=== PATIENT | female | born 1955 | race Caucasian/White ===

== ENCOUNTER 2019-12-08 14:30 | Inpatient (IN) | payer OTHER, MEDICAID ==
[~2019-12-08] VITALS: Ht 152.4 cm; Wt 74.4 kg
[2019-12-08 14:35] VITALS: BP_SYST 128
[2019-12-08] MEDS ORDERED: NACL 0.9% 1,000 ML IV ONE (14:35)
--- NOTE | 2019-12-08 14:35 | NUR ---
Placed in room by EMT.
[2019-12-08] MEDS ORDERED: MORPHINE 2 MG/ML INJ. SYRINGE IVP ONE (14:45)
[2019-12-08] MEDS ORDERED: ONDANSETRON HCL 4 MG/2 ML VIAL IVP ONE (14:45)
--- NOTE | 2019-12-08 15:05 | NUR ---
TO X-RAY. LABS SENT, IV HL 20 GUAGE RT LOWER ARM
[2019-12-08 15:21] LABS: BASOPHILS % (AUTO) 0.4 % (0.0-2.0); EOSINOPHILS # (AUTO) 0.2 K/uL (0.0-0.4); HEMATOCRIT 30.1 % (36-48); HEMOGLOBIN 9.9 g/dL (12.0-16.0); LYMPHOCYTES # (AUTO) 0.8 K/uL (1.0-5.5); LYMPHOCYTES % (AUTO) 6.7 % (20.5-51.5); MEAN CORPUSCULAR HEMOGLOBIN 31 pg (27-31); MEAN CORPUSCULAR HGB CONC 33 % (32-36); MONOCYTES # (AUTO) 1.2 K/uL (0.0-1.0); NEUTROPHILS # (AUTO) 9.9 K/uL (1.8-7.7); NEUTROPHILS % (AUTO) 80.9 % (40.0-70.0); PLATELET COUNT (AUTO) 271 K/uL (130-430); RED BLOOD CELL COUNT(AUTO) 3.16 MIL/uL (4.2-6.2); RED CELL DISTRIBUTION WIDTH 14.8 % (9.0-15.0); WHITE BLOOD COUNT (AUTO) 12.3 K/uL (4.8-10.8)
--- NOTE | 2019-12-08 15:27 | NUR ---
1450 DR. WINKLER IN TO ASSESS. PT CALM, ALERT, BLIND
[2019-12-08 15:32] LABS: MEAN CORPUSCULAR VOLUME 95 fL (79.0-98.0)
[2019-12-08 15:34] LABS: ANION GAP 8 (5-15); CALCIUM 7.7 mg/dL (8.4-11.0); CHLORIDE 105 mmol/L (98-107); CREATININE 1.38 mg/dL (0.55-1.30); GLUCOSE 110 mg/dL (70-99); POTASSIUM 3.3 mmol/L (3.5-5.1); SODIUM SERUM 139 mmol/L (136-145); UREA NITROGEN, BLOOD 15 mg/dL (8-21)
--- NOTE | 2019-12-08 15:34 | NUR ---
BIB AMBULANCE FROM [facility] FOR ABD PAIN UPON ARRIVAL , C/O EPIGATRIC PAIN WITH VOMITING AND DIARRHEA. NO DISTRESS, RESP UNLABORED, SKIN WARM AND DRY. COMMUNICATES CLEARLY IN FULL COMPLETE SENTENCES.
[2019-12-08 15:35] LABS: PROTHROMBIN TIME 10.4 SECS (9.5-12.5)
[2019-12-08 15:36] LABS: GFR AFRICAN AMERICAN 49 mL/min (>90)
[2019-12-08 15:40] LABS: ALANINE AMINOTRANSFERASE 25 U/L (12-78); ALBUMIN 2.3 g/dL (3.4-4.8); AMYLASE 25 U/L (0-100); ASPARTATE AMINOTRANSFERASE 18 U/L (10-37); LIPASE 48 U/L (73-393); TOTAL BILIRUBIN 0.4 mg/dL (0.0-1.0)
[2019-12-08 15:43] LABS: ACETAMINOPHEN < 1 ug/mL (1-30); ALCOHOL, BLOOD < 3 mg/dL (<10)
[2019-12-08 15:46] LABS: CHOLESTEROL 173 mg/dL (<200); HDL CHOLESTEROL 34 mg/dL (>55); TRIGLYCERIDES 153 mg/dL (30-150)
[2019-12-08 15:48] LABS: LDL CHOLESTEROL 99 mg/dL (<100)
--- NOTE | 2019-12-08 15:56 | NUR ---
PT'S SISTER CALLED TO CHECK ON THE STATUS OF HER SISTER. ASKED HER FOR HER NAME AND CALL BACK INFORMATION. HER NAME IS ARIAS PERALTA, AND PHONE NUMBER IS [phone]. WAS TOLD THAT THE NURSE WILL CALL ONCE WE HAVE ANY UPDATES.
[2019-12-08] MEDS ORDERED: cefTRIAXone 1 GM IVPB PREMIX 50 ML IV ONE (16:00)
--- NOTE | 2019-12-08 17:16 | NUR ---
CONSULTATION PAGED/CALLED Reason for Consultation: [] DIVERTICULITIS Person Who was Notified: [] MEGGAN Consulting Physician: [] DR INMAN ANALYSIS EVALUATOR FOR DR FLORES Assistant District Attorney Specialty: [] GI Ordering Physician: [] DR ANDERSON
--- NOTE | 2019-12-08 17:23 | NUR ---
respunlabored, skin warm and dry. ambulates steady with assistance. medicated for pain 02/12
[2019-12-08] MEDS ORDERED: MORPHINE 2 MG/ML INJ. SYRINGE ONE (17:27)
[2019-12-08] MEDS ORDERED: ONDANSETRON HCL 4 MG/2 ML VIAL ONE (17:28)
--- NOTE | 2019-12-08 17:43 | NUR ---
Rhonda POWERS started by RN @ 7407, completed @ 9598
--- NOTE | 2019-12-08 17:43 | NUR ---
Patient will be admitted to care of Dr. Hough. Admitted to MedSurg unit. Will go to room 104A. Belongings list completed. Complete and up to date summary report printed. SBAR report to be given at bedside with opportunity for questions.
[2019-12-08] MEDS ORDERED: DEXTROSE 50% JECT 50 ML DISP.SYRIN IVP PRN (17:45)
[2019-12-08] MEDS ORDERED: METOCLOPRAMIDE HCL 10 MG/2 ML VIAL IVP PRN (17:45)
[2019-12-08] MEDS ORDERED: ONDANSETRON HCL 4 MG/2 ML VIAL IVP PRN (17:45)
--- NOTE | 2019-12-08 17:59 | NUR ---
Admission: Received from ER on a gurney with the diagnosis of Diverticulitis and Pneumonia. Total assist with transfer from gurney to bed. Patient is oriented x4. Oriented to room, call light within reach.
[2019-12-08 18:18] VITALS: BP_SYST 123
[2019-12-08 18:33] LABS: BILIRUBIN,URINE NEGATIVE (NEGATIVE); BLOOD, URINE NEGATIVE (NEGATIVE); CLARITY/URINE CLEAR (CLEAR); COLOR,URINE YELLOW (YELLOW); GLUCOSE,URINE NEGATIVE (NEGATIVE); KETONES,URINE NEGATIVE (NEGATIVE); LEUKOCYTE ESTERASE ,URINE NEGATIVE (NEGATIVE); NITRITE, URINE NEGATIVE (NEGATIVE); PROTEIN URINE NEGATIVE (NEGATIVE); UROBILINOGEN,URINE 0.2 (0.2-1.0)
[2019-12-08 18:46] LABS: BARBITURATE, URINE NEGATIVE (NEG <=200); BENZODIAZEPINE, URINE NEGATIVE (NEG <=150); CANNABINOID, URINE POSITIVE (NEG <=50); COCAINE, URINE NEGATIVE (NEG <=150); METHAMPHETAMINES SCREEN,URINE NEGATIVE (NEG <=500); URINE AMPHETAMINE NEGATIVE (NEG <=500); URINE METHADONE NEGATIVE (NEG <=200)
[2019-12-08 18:47] LABS: OPIATE, URINE NEGATIVE (NEG <=100); PHENCYCLIDINE SCREEN,URINE NEGATIVE (NEG <=25); UR TRICYCLIC ANTIDEPRESSANTS NEGATIVE (NEG <=300); URINE OXYCODONE SCREEN NEGATIVE (NEG <=100); URINE PROPOXYPHENE SCREEN NEGATIVE (NEG <=300)
[2019-12-08 19:00] VITALS: BP_SYST 130
[2019-12-08] MEDS: D5NS 1,000 ML IV SCH (19:24)
--- NOTE | 2019-12-08 19:45 | NUR ---
RESTING COMFORTABLY IN NO ACUTE DISTRESS.SITTER @ THE BS.
[2019-12-08 20:00] VITALS: BP_SYST 130
--- NOTE | 2019-12-08 20:00 | NUR ---
AFEBRILE.V/S STABLE.KEPT NPO.
[2019-12-08] MEDS ORDERED: metroNIDAZOLE 500 mg/NS 200 ML IV ONE (22:00)
--- NOTE | 2019-12-08 22:00 | NUR ---
IVF D5NS @ 75 ML/HR INFUSING WELL.PT KEPT SAYING "I DON'T WANT TO BE BOTHERED.STOP IT".
[2019-12-08] MEDS: metroNIDAZOLE 500 mg/NS 100 ML IV SCH (22:03)
--- NOTE | 2019-12-09 | NUR ---
FINGER STICK BLD SUGAR 90. REFUSED BP @ THIS TIME.
--- NOTE | 2019-12-09 02:00 | NUR ---
RESTING COMFORTABLY IN NO ACUTE DISTRESS.SITTER @ THE BS.
--- NOTE | 2019-12-09 04:00 | NUR ---
ASSISTED OOB TO BS COMMODE & ASSISTED BACK TO BED.
[2019-12-09] MEDS: metroNIDAZOLE 500 mg/NS 100 ML IV SCH ×3 (05:08→18:53)
--- NOTE | 2019-12-09 06:00 | NUR ---
REFUSED FINGER STICK FOR BLD SUGAR;SCHOOL CHILDCARE ATTENDANT AWARE.
--- NOTE | 2019-12-09 06:45 | NUR ---
ENDORSED IN NO ACUTE DISTRESS.NO S/S OF HYPO/HYPERGLYCEMIA NOTED. SAFETY MAINTAINED.SITTER @ THE BS.
[2019-12-09] MEDS: D5NS 1,000 ML IV SCH ×2 (07:00→17:44)
--- NOTE | 2019-12-09 08:00 | NUR ---
A/OX4. BLIND. AMBULATING. SITTER AT BEDSIDE. CALL LIGHT IN PLACE, BED LOCKED AT THE LOWEST POSITION. WILL CONTINUE TO MONITOR.
--- NOTE | 2019-12-09 08:36 | NUR ---
CONSULTATION PAGED/CALLED Reason for Consultation: [] DERESSION Person Who was Notified: [] MEGGAN Consulting Physician: [] DR ALONZO, -- DR RAMOS AGILE TEST LEAD Network Development Coordinator Specialty: [] PSYCH Ordering Physician: [] DR ANDERSON
--- NOTE | 2019-12-09 11:00 | NUR ---
PATIENT IS C/O PAIN. MORPHINE 2MG WILL BE GIVEN.
[2019-12-09 11:15] LABS: BASOPHILS % (AUTO) 0.3 % (0.0-2.0); EOSINOPHILS # (AUTO) 0.3 K/uL (0.0-0.4); HEMATOCRIT 28.9 % (36-48); HEMOGLOBIN 9.6 g/dL (12.0-16.0); LYMPHOCYTES # (AUTO) 0.7 K/uL (1.0-5.5); LYMPHOCYTES % (AUTO) 6.6 % (20.5-51.5); MEAN CORPUSCULAR HEMOGLOBIN 31 pg (27-31); MEAN CORPUSCULAR HGB CONC 33 % (32-36); MEAN CORPUSCULAR VOLUME 95 fL (79.0-98.0); MONOCYTES # (AUTO) 1.1 K/uL (0.0-1.0); MONOCYTES % (AUTO) 9.9 % (1.7-9.3); NEUTROPHILS # (AUTO) 8.7 K/uL (1.8-7.7); NEUTROPHILS % (AUTO) 80.2 % (40.0-70.0); PLATELET COUNT (AUTO) 264 K/uL (130-430); RED BLOOD CELL COUNT(AUTO) 3.05 MIL/uL (4.2-6.2); WHITE BLOOD COUNT (AUTO) 10.9 K/uL (4.8-10.8)
[2019-12-09] MEDS: MORPHINE 2 MG/ML INJ. SYRINGE IVP PRN ×2 (11:16→20:31)
[2019-12-09 11:28] LABS: ALBUMIN 2.1 g/dL (3.4-4.8); CALCIUM 7.7 mg/dL (8.4-11.0); CREATININE 1.37 mg/dL (0.55-1.30); POTASSIUM 3.2 mmol/L (3.5-5.1); TOTAL BILIRUBIN 0.3 mg/dL (0.0-1.0)
[2019-12-09 12:00] VITALS: BP_SYST 120
--- NOTE | 2019-12-09 13:28 | NUR ---
PATIENT HAD LUNCH. TOLERATED WITHOUT DISTRESS.
--- NOTE | 2019-12-09 15:17 | NUR ---
PATIENT C/O BACK PAIN. 2MG MORPHINE IS GIVEN IVP.
[2019-12-09 15:53] VITALS: BP_SYST 117
--- NOTE | 2019-12-09 17:00 | NUR ---
PATIENT IS RESTING, TOLERATED WITHOUT DISTRESS.
[2019-12-09] MEDS: cefTRIAXone 1 GM IVPB PREMIX 50 ML IV SCH (17:41)
--- NOTE | 2019-12-09 18:43 | NUR ---
PATIENT FINISHES DINNER, TOLERATED WITHOUT DISTRESS.
[2019-12-09] MEDS ORDERED: POTASSIUM CHLORIDE 20 MEQ TAB.PRT.SR PO ONE (18:45)
--- NOTE | 2019-12-09 19:45 | NUR ---
A/A/O X4. RESTING COMFORTABLY WITH SITTER @ THE BS. IVF D5NS @ 75 ML/HR INFUSING WELL.DENIES ANY DISCOMFORT @ THIS TIME. DENIES SOB. NOTED ABDOMINAL FOLDS & BILATERAL GROIN REDDENED.
[2019-12-09 20:00] VITALS: BP_SYST 115
--- NOTE | 2019-12-09 20:31 | NUR ---
C/O OF SEVERE PAIN ON HER LOWER BACK.MORPHINE 2 MG IVP ADM.
--- NOTE | 2019-12-09 21:01 | NUR ---
PER PT PAIN STILL PERSIST BUT DECREASED TO MODERATE PAIN.
[2019-12-09] MEDS: ACETAMINOPHEN 325 MG TABLET PO PRN (22:55)
--- NOTE | 2019-12-09 22:55 | NUR ---
PT C/O OF PAIN NOW ON HER ABDOMEN & LOWER BACK SCALE 02/12. EXPLAINED THAT MORPHINE IS TO SOON . TYLENOL PO ADM.
--- NOTE | 2019-12-09 23:55 | NUR ---
PER PT "YOU ARE NOT HELPING ME .I STILL HAVE PAIN." EXPLAINED I CAN GIVE HER ANOTHER DOSE OF MORPHINE WHEN IT'S DUE & VERBALIZED UNDERSTANDING.
[2019-12-10 00:23] VITALS: BP_SYST 131
[2019-12-10] MEDS: MORPHINE 2 MG/ML INJ. SYRINGE IVP PRN ×4 (00:25→20:34)
--- NOTE | 2019-12-10 00:25 | NUR ---
MORPHINE IVP ADM FOR HER SEVERE LOWER BACK PAIN & ABDOMINAL PAIN. REPOSITIONED PT WITH SITTER.
--- NOTE | 2019-12-10 00:55 | NUR ---
RESTING COMFORTABLY IN NO ACUTE DISTRESS.
[2019-12-10] MEDS: metroNIDAZOLE 500 mg/NS 100 ML IV SCH ×3 (01:54→20:34)
--- NOTE | 2019-12-10 03:00 | NUR ---
ASLEEP IN NO ACUTE DISTRESS.SITTER @ THE BS.
[2019-12-10 04:48] VITALS: BP_SYST 120
--- NOTE | 2019-12-10 05:00 | NUR ---
ASSISTED PT OOB TO THE RESTROOM & BACK TO BED.
[2019-12-10 06:34] LABS: CALCIUM 7.4 mg/dL (8.4-11.0); CREATININE 1.18 mg/dL (0.55-1.30); TOTAL BILIRUBIN 0.2 mg/dL (0.0-1.0)
--- NOTE | 2019-12-10 06:35 | NUR ---
MD ROUNDS: DR ALONZO MADE ROUNDS, AFTER ASSESSING THE PT MD ORDERED TO DC SITTER AT BEDSIDE . ALSO MD STATED "NO NEED TO RENEW NOW ,I WILL RENEW THE 5150 WHEN PT TRANSFER TO THE PSYCH FACILITY ", ORDER ENTERED AND NOTIFIED SITTER . BED SIDE RAILS ARE UP X3 AND BED ALARM IS ON , CALL LIGHT IN REACH , PT IS BLIND , ROOM NEAR TO STATION . PRIMARY RN NOTIFIED .
--- NOTE | 2019-12-10 06:37 | NUR ---
ENDORSED IN NO ACUTE DISTRESS.IVF D5NS @ 75 ML/HR INFUSING WELL.NO S/S OF HYPO/HYPERGLYCEMIA NOTED. SAFETY MAINTAIN.
[2019-12-10 06:47] LABS: POTASSIUM 2.7 mmol/L (3.5-5.1)
--- NOTE | 2019-12-10 06:50 | NUR ---
LAB CALLED K 2.7. WAS CALLED ALREADY BY TELE [employer].
[2019-12-10 06:52] LABS: BASOPHILS % (AUTO) 0.3 % (0.0-2.0); EOSINOPHILS # (AUTO) 0.3 K/uL (0.0-0.4); EOSINOPHILS % (AUTO) 2.7 % (0.0-4.0); HEMATOCRIT 28.4 % (36-48); HEMOGLOBIN 9.2 g/dL (12.0-16.0); LYMPHOCYTES # (AUTO) 0.9 K/uL (1.0-5.5); LYMPHOCYTES % (AUTO) 7.3 % (20.5-51.5); MEAN CORPUSCULAR HEMOGLOBIN 31 pg (27-31); MEAN CORPUSCULAR HGB CONC 32 % (32-36); MEAN CORPUSCULAR VOLUME 96 fL (79.0-98.0); MONOCYTES # (AUTO) 1.2 K/uL (0.0-1.0); MONOCYTES % (AUTO) 9.4 % (1.7-9.3); NEUTROPHILS # (AUTO) 9.9 K/uL (1.8-7.7); NEUTROPHILS % (AUTO) 80.3 % (40.0-70.0); PLATELET COUNT (AUTO) 268 K/uL (130-430); RED BLOOD CELL COUNT(AUTO) 2.96 MIL/uL (4.2-6.2); RED CELL DISTRIBUTION WIDTH 14.9 % (9.0-15.0); WHITE BLOOD COUNT (AUTO) 12.3 K/uL (4.8-10.8)
--- NOTE | 2019-12-10 07:10 | NUR ---
OPENING NOTE RECEIVED BEDSIDE SBAR FROM NIGHT RN, PATIENT IN BED, RESPIRATIONS EVEN NON LABORED, BED IN LOW AND LOCKED POSITION, CALL LIGHT WITHIN REACH, BED ALARM ON
--- NOTE | 2019-12-10 07:20 | NUR ---
RESPONDED COVERING DR. ANDERSON & TEL ORDER GIVEN.
--- NOTE | 2019-12-10 07:28 | NUR ---
Nutrition Update Ramesh Scale 17 noted. Pt admitted for Diverticulitis, pneumonia Diet: Clear liquid BMI: 32 kg/m2 RD to follow per nutrition care standards.
[2019-12-10] MEDS: POTASSIUM CHLORIDE 20 MEQ TAB.PRT.SR PO ONE ×2 (07:30→09:14)
[2019-12-10] MEDS ORDERED: POTASSIUM CHLORIDE 40 MEQ in NS 250 ML IV ONE (07:30)
--- NOTE | 2019-12-10 07:55 | NUR ---
MD ROUNDS DR. INMAN BEDSIDE EXAMINING PATIENT
[2019-12-10] MEDS: QUEtiapine FUMARATE 25 MG TABLET PO SCH ×3 (08:19→20:25)
--- NOTE | 2019-12-10 10:55 | NUR ---
MD ROUNDS DR. ANDERSON BEDSIDE EXAMINING PATIENT
--- NOTE | 2019-12-10 12:00 | NUR ---
AMBULATION ASSISTED PATIENT AMBULATED TO BATHROOM, VOIDED, RETURNED TO BED, NO SIGNS OF DISTRESS, BED IN LOW AND LOCKED POSITION, CALL LIGHT WITHIN REACH, BED ALARM ON
--- NOTE | 2019-12-10 12:04 | NUR ---
IV PATIENT COMPLAINED OF DISCOMFORT AT IV INSERTION SITE, NO SIGNS OF INFILTRATION, IV INFUSING WELL, LOWERED IV RATE TO 57ML/HR, WILL CONTINUE TO MONITOR
[2019-12-10 12:22] VITALS: BP_SYST 123
--- NOTE | 2019-12-10 12:42 | NUR ---
Dietitian Recommendations *Continue Clear liquid diet per MD. *If/when medically appropriate, [facility] Low Fiber 2gm Na diet. Please see Nutritional Assessment for details. INDIRA, JASON
--- NOTE | 2019-12-10 13:15 | NUR ---
LABS PATIENT REFUSED BLOOD DRAW FROM CAR SALES REPRESENTATIVE. PATIENT REQUESTED A DIFFERENT CAR SALES REPRESENTATIVE
--- NOTE | 2019-12-10 13:57 | NUR ---
Dry Cleaning Machine Operator Helper: Speak with pt. via phone call due to [facility] regulations during the . GENERAL UTILITY MACHINE OPERATOR conducted a DCPA and SW interview. GENERAL UTILITY MACHINE OPERATOR called and spoke to pt. She was a little excited because the veterinary surgery technician was in her room trying to draw blood.She said she did not allow him to do so because he came into her room and she did not like the way he was speaking to her. GENERAL UTILITY MACHINE OPERATOR asked her to re-consider because they were just trying to keep her healthy. Pt. confirmed the the demographic info. on the facesheet. She did say her PCP was Dr. Andrey Holland in [place], not Dr. Hough as listed. GENERAL UTILITY MACHINE OPERATOR will request a correction. Pt stated she has a Dx. of Bipolar and Schizophrenia since a couple of years ago at [facility], but, she stated, "That is wrong. I don't have that!" When asked about medication, pt. stated "Even though I don't have that, I still take my medicine. They give it to me and I take it." Pt. stated she sees Dr. Ornelas, a Psychiatrist at [facility] and even when she is home. She sees him about 1x per month. Pt. stated her goal is to return to her [facility], [id number] [facility]. If she is not living there, she stays with her sister, Angelique Mendoza, . GENERAL UTILITY MACHINE OPERATOR thanked pt. for her assistance and will remain available as needed.
[2019-12-10 14:16] LABS: POTASSIUM 3.1 mmol/L (3.5-5.1)
[2019-12-10] MEDS: D5NS 1,000 ML IV SCH ×2 (14:26→22:21)
--- NOTE | 2019-12-10 14:29 | NUR ---
RN rounds patient resting in bed, eyes closed, breathing is even and unlabored, no signs of distress, IV fluids hung and infusing well, IV line is patent and infusing well, bed in lowest position, three side rails up, bed alarm on, bed close to nursing station, fall and aspiration precautions in place, call light within reach.
--- NOTE | 2019-12-10 15:15 | NUR ---
Adri Hough regarding potassium and magnesium levels . Addendum: 12/10/19 at 1526 by Blas Carey RN ORDERS RECEIVED FOR KRIDER AND MAGNESIUM REPLACEMENT- WILL FOLLOW UP.
[2019-12-10] MEDS ORDERED: POTASSIUM CHLORIDE 40 MEQ, LIDOCAINE JECT 2% PF 100 MG 50 MG in NS 250 ML IV ONE (15:30)
[2019-12-10] MEDS ORDERED: MAGNESIUM SULFATE 50 ML IV ONE (15:30)
[2019-12-10 16:31] VITALS: BP_SYST 133
--- NOTE | 2019-12-10 16:45 | NUR ---
RN rounds/Medication patient resting in bed, eyes closed, breathing is even and unlabored, IV potassium and Magnesium hung and infusing well, IV line is patent and infusing well, bed in lowest position, three side rails up, bed alarm on, bed close to nursing station, fall and aspiration precautions in place.
--- NOTE | 2019-12-10 17:15 | NUR ---
cLOSING NOTES BEDSIDE SBAR GIVEN TO NIGHT RN, PATIENT IN BED, EYES CLOSED, RESPIRATIONS EVEN, NON LABORED, BED IN LOW AND LOCKED POSITION, CALL LIGHT WITHIN REACH, BED ALARM ON
[2019-12-10] MEDS: cefTRIAXone 1 GM IVPB PREMIX 50 ML IV SCH (17:48)
[2019-12-10 19:30] VITALS: BP_SYST 139
--- NOTE | 2019-12-10 19:30 | NUR ---
INITIAL NOTES PATIENT WALKED TO THE RESTROOM ASSISTED BY WOOD MOLDER AT THIS TIME. PATIENT WAS REPOSITION IN BED FOR COMFORT. PATIENT IS STABLE. NO S/S OF RESPIRATORY DISTRESS NOTED. PATIENT UNSUCCESSFULLY DEMONSTRATES USAGE OF CALL LIGHT. WILL CONTINUE TO MONITOR. BED IS LOCKED, ALARMED, AND AT THE LOWEST POSITION. FALL, SAFETY, ASPIRATION, AND RESPIRATORY PRECAUTIONS WILL BE IN PLACE THROUGHOUT THE SHIFT. PLAN OF CARE IS DISCUSSED WITH PATIENT AT THIS TIME.
--- NOTE | 2019-12-10 20:00 | NUR ---
COMMUNICATED WITH DR. ANDERSON THAT PATIENT REFUSED POTASSIUM IV. NEW ORDERS FOR PO GIVEN AT THIS TIME. WILL FOLLOW THROUGH.
[2019-12-10] MEDS ORDERED: POTASSIUM CHLORIDE 20 MEQ TAB.PRT.SR PO ONE (20:15)
[2019-12-10] MEDS: NYSTATIN 15 GM TOPICAL POWDER TP SCH (20:40)
--- NOTE | 2019-12-10 21:22 | NUR ---
IV IS OUT AT THIS TIME. NO S/S MAJOR BLEEDING. TIP IS INTACT. NEW IV INSERTED AT THIS TIME. PATIENT TOLERATED WELL. PATIENT STABLE. NO S/S OF RESPIRATORY DISTRESS NOTED.
--- NOTE | 2019-12-10 21:30 | NUR ---
ROUNDING PATIENT IS LAYING DOWN IN BED AND STABLE. NO S/S OF RESPIRATORY DISTRESS NOTED. CALL LIGHT IN REACH. BED IS LOCKED, ALARMED, AND AT THE LOWEST POSITION.
[2019-12-11 00:01] VITALS: BP_SYST 129
--- NOTE | 2019-12-11 01:30 | NUR ---
ROUNDING PATIENT IS SLEEPING IN BED AND STABLE. NO S/S OF RESPIRATORY DISTRESS NOTED. CALL LIGHT IN REACH. BED IS LOCKED, ALARMED, AND AT THE LOWEST POSITION.
[2019-12-11] MEDS: MORPHINE 2 MG/ML INJ. SYRINGE IVP PRN ×3 (02:30→20:48)
[2019-12-11] MEDS: metroNIDAZOLE 500 mg/NS 100 ML IV SCH ×3 (02:33→20:42)
--- NOTE | 2019-12-11 06:12 | NUR ---
CLOSING NOTES PATIENT IS STABLE AND LAYING IN BED. NO S/S OF RESPIRATORY DISTRESS NOTED. CALL LIGHT IN REACH. BED IS LOCKED, ALARMED, AND AT THE LOWEST POSITION. FALL, SAFETY, ASPIRATION, AND RESPIRATORY PRECAUTIONS HAS BEEN IN PLACE THROUGHOUT THE SHIFT. WILL CONTINUE TO MONITOR UNTIL REPORT IS ENDORSED TO AM NURSE BY BEDSIDE.
[2019-12-11 08:00] VITALS: BP_SYST 125
--- NOTE | 2019-12-11 08:00 | NUR ---
initial notes rec patient awake and requested to be taken to the br. pt is blind and guided to the br. ivf infusing well on the l forearm. no infiltration noted. denies pain . bed to the lowest position and side rails up and locked. call light within reached , patient is close to the nurses station.
[2019-12-11 09:54] LABS: BASOPHILS # (AUTO) 0.1 K/uL (0.0-0.2); BASOPHILS % (AUTO) 0.5 % (0.0-2.0); EOSINOPHILS # (AUTO) 0.4 K/uL (0.0-0.4); EOSINOPHILS % (AUTO) 3.9 % (0.0-4.0); HEMOGLOBIN 10.1 g/dL (12.0-16.0); LYMPHOCYTES # (AUTO) 0.9 K/uL (1.0-5.5); LYMPHOCYTES % (AUTO) 8.4 % (20.5-51.5); MEAN CORPUSCULAR HEMOGLOBIN 31 pg (27-31); MEAN CORPUSCULAR HGB CONC 33 % (32-36); MEAN CORPUSCULAR VOLUME 95 fL (79.0-98.0); MONOCYTES # (AUTO) 0.9 K/uL (0.0-1.0); MONOCYTES % (AUTO) 8.6 % (1.7-9.3); NEUTROPHILS # (AUTO) 8.1 K/uL (1.8-7.7); NEUTROPHILS % (AUTO) 78.6 % (40.0-70.0); PLATELET COUNT (AUTO) 307 K/uL (130-430); RED BLOOD CELL COUNT(AUTO) 3.25 MIL/uL (4.2-6.2); WHITE BLOOD COUNT (AUTO) 10.3 K/uL (4.8-10.8)
--- NOTE | 2019-12-11 10:00 | NUR ---
rounds requested to be taken to the br at intervals. no sob noted. call light within reached.
[2019-12-11] MEDS: QUEtiapine FUMARATE 25 MG TABLET PO SCH ×3 (10:08→20:42)
[2019-12-11] MEDS: NYSTATIN 15 GM TOPICAL POWDER TP SCH ×2 (10:10→20:51)
[2019-12-11] MEDS: D5NS 1,000 ML IV SCH (10:13)
[2019-12-11 10:35] LABS: CALCIUM 7.6 mg/dL (8.4-11.0); CREATININE 1.06 mg/dL (0.55-1.30)
[2019-12-11 10:40] LABS: ALBUMIN 2.3 g/dL (3.4-4.8); TOTAL BILIRUBIN 0.2 mg/dL (0.0-1.0)
[2019-12-11 13:19] VITALS: BP_SYST 140
--- NOTE | 2019-12-11 16:00 | NUR ---
rounds assisted to the br at intervals to void. fall precaution rendered. no sob noted.
[2019-12-11 17:07] VITALS: BP_SYST 138
[2019-12-11] MEDS: cefTRIAXone 1 GM IVPB PREMIX 50 ML IV SCH (18:03)
--- NOTE | 2019-12-11 18:30 | NUR ---
closing notes assisted patient to the br and complains a lot. stated not happy with the service here. bd to the lowest position and side rails up and locked. call light within reached. pt close to the nurses station.
--- NOTE | 2019-12-11 19:00 | NUR ---
Report about paging Dr. Hough: During report was told day shift has attempted [address] Hough about the patient and regarding her Potassium of 3.0. Patient is having episodes of diarrhea x5 times day shift. Labs are reordered for the morning.
--- NOTE | 2019-12-11 19:30 | NUR ---
OPENING NOTE/REFUSAL/EDUCATION/MICHAEL CARE: Patient is awake at this time, AOx4, she is currently crying with complains of having to use the restroom and day shift. Patient verbalized "she needs to get up to use the restroom" she also refused to use the bedpan. However, the patient is blind and cannot ambulate without assistance. I educated the patient on the use of her personal phone and gave her my personal work phone number and also educated her on the use of her call light. She verbalized and demonstrated proper use. At this time, patient had two episodes of diarrhea, a stool CDIFF sample was collect, she was assisted to the bathroom with a steady gait both times and assisted back to the bed, patient tolerated well. Patient is c/o of 10/10 back pain at this time. Will administer PRN medication accordingly. IVF are infusing well. IV site without s/s of infiltration or infection. Bed alarm is on, bed is locked in lowest position, call light and phone are within reach of patient. Will continue to monitor.
--- NOTE | 2019-12-11 21:00 | NUR ---
ROUNDS/MICHAEL CARE/C/O of not being ambulated to restroom: Patient is awake at this time. Patient has had michael care done at this time. Patient tolerated well. Patient keeps yelling out about c/o of pain, about needing the use of the restroom, and about the service here. Patient already medicated accordingly, patient has been advised to use bedpan in case she cannot be assisted to ambulate to the restroom, patient was encouraged to express her feelings. Patient verbalized an understanding about not always being able to be assisted to the restroom and still denied the use of the bed martinez. I explained to patient even if she is to have an accident, we can come in and change her chucks/linens without any issues. She stated "I don't want to sit in my own urine, I would be too embarrassed." I explained to patient it is okay, we are here to help, however still had negative feelings towards the idea. I will continue to educate the patient and encourage her expression of feelings. Bed alarm is on, bed locked in lowest position, call light/phone within reach. Will continue to monitor.
--- NOTE | 2019-12-11 23:15 | NUR ---
ROUNDS: Patient is asleep at this time. Breathing is even and unlabored. Bed alarm is on, bed locked in lowest position, call light with patient. Will continue to monitor.
--- NOTE | 2019-12-12 00:20 | NUR ---
ROUNDS/25 MINS IN ROOM: Patient is crying at this time. She stated she is being lied to about not being able to use the restroom and that she hates liars and doesn't want anyone other than myself and the ENROLLMENT MANAGEMENT MANAGER to come in and help her. Prior to this, patient called me on my phone and expressed how she needed to use the restroom, I let her know myself and the ENROLLMENT MANAGEMENT MANAGER were helping another patient at this time and we would do our best to get to her as quickly as possible. During this time another nurse came in and helped clean up the patient as the patient was screaming out into the hallway. She stated the nurse who came in lied to her and she hates liars. I explained the patient that we are sometimes busy with other patients and cannot come attend to her at that exact moment but will come to her room as soon as we can and if she yells into the hallway then someone else would come in and assist her because patient safety and patients are our priority. Patient still expressed negative feelings about service, staff, and hospital. She expressed possibly leaving AMA and would talk to the doctor to go to [facility] tomorrow. Patient was encouraged to express her feelings and was educated at this time on prioritization of patients. Spent a total of 25 minutes in the patient's room at this time. Bed alarm is on, bed locked in lowest position, call light/phone with patient. I will continue to monitor.
--- NOTE | 2019-12-12 00:56 | NUR ---
ROUNDS/PT CRYING/REFUSAL OF NON SLIP SOCKS Patient is crying at this time about the frustration she feels about not being able to be assisted to the bathroom at all times. The bedpan as been encouraged especially because the patient is blind and refuses to wear non slip socks. Patient was educated on her safety by using the bedpan. She calls for the restroom and states "She cannot hold it."She still had negative feelings about the use and demands to be taken to the assisted to the restroom. Patient has been changed every time she has used the bathroom. She was encouraged to express her feelings. Will continue to monitor.
[2019-12-12 01:05] VITALS: BP_SYST 124
[2019-12-12] MEDS: MORPHINE 2 MG/ML INJ. SYRINGE IVP PRN ×2 (01:22→20:05)
[2019-12-12] MEDS: INSULIN REGULAR, HUMAN 100 UNITS/ML, 10 ML VIAL (humuLIN R) SUBCUT PRN ×2 (01:24→06:32)
[2019-12-12] MEDS: D5NS 1,000 ML IV SCH ×2 (03:20→15:00)
[2019-12-12] MEDS: metroNIDAZOLE 500 mg/NS 100 ML IV SCH ×3 (03:20→20:06)
--- NOTE | 2019-12-12 03:30 | NUR ---
ROUNDS/MICHAEL CARE/IV FLUIDS CHANGED: Patient was assisted to the restroom at this time with a steady gait by the GLOST TILE SORTER. Michael care performed, patient was assisted back to bed. Patient tolerated ambulating well. Breathing is even and unlabored. IV fluids were changed. Patient still crying stating she "cannot take the pain anymore". PRN medication already given, patient was educated and encouraged to practice deep breathing, Patient refused and stated "deep breathing doesn't work for me". Bed alarm is on, bed locked in lowest position, call light/phone with patient. Will continue to monitor.
--- NOTE | 2019-12-12 05:15 | NUR ---
ROUNDS: Patient is asleep at this time. Breathing is even and unlabored. Bed alarm on, bed locked in lowest position, call light with patient. Will continue to monitor.
--- NOTE | 2019-12-12 06:15 | NUR ---
CLOSING NOTE: Patient asleep at this time, AOx4. No s/s of acute distress noted. Breathing is even and unlabored. IVF infusing well. IV site patent without s/s of infection or infiltration. All fall and safety precautions maintained throughout the shift. All needs met throughout the shift. Will continue to monitor until endorsement of dayshift nurse.
[2019-12-12 07:02] LABS: BASOPHILS % (AUTO) 0.5 % (0.0-2.0); EOSINOPHILS # (AUTO) 0.4 K/uL (0.0-0.4); EOSINOPHILS % (AUTO) 5.3 % (0.0-4.0); HEMATOCRIT 27.9 % (36-48); HEMOGLOBIN 9.2 g/dL (12.0-16.0); LYMPHOCYTES % (AUTO) 13.8 % (20.5-51.5); MEAN CORPUSCULAR HEMOGLOBIN 31 pg (27-31); MEAN CORPUSCULAR HGB CONC 33 % (32-36); MEAN CORPUSCULAR VOLUME 96 fL (79.0-98.0); MONOCYTES # (AUTO) 0.7 K/uL (0.0-1.0); MONOCYTES % (AUTO) 10.6 % (1.7-9.3); NEUTROPHILS # (AUTO) 4.9 K/uL (1.8-7.7); NEUTROPHILS % (AUTO) 69.8 % (40.0-70.0); PLATELET COUNT (AUTO) 295 K/uL (130-430); RED BLOOD CELL COUNT(AUTO) 2.91 MIL/uL (4.2-6.2); RED CELL DISTRIBUTION WIDTH 15.4 % (9.0-15.0)
[2019-12-12 07:08] LABS: WHITE BLOOD COUNT (AUTO) 7.1 K/uL (4.8-10.8)
[2019-12-12 07:22] LABS: CALCIUM 7.3 mg/dL (8.4-11.0); CREATININE 0.98 mg/dL (0.55-1.30); TOTAL BILIRUBIN 0.2 mg/dL (0.0-1.0)
[2019-12-12 07:30] LABS: POTASSIUM 2.8 mmol/L (3.5-5.1)
[2019-12-12] MEDS ORDERED: POTASSIUM CHLORIDE 20 MEQ TAB.PRT.SR PO ONE ×2 (07:45→12:00)
[2019-12-12 08:00] VITALS: BP_SYST 123
--- NOTE | 2019-12-12 08:00 | NUR ---
Note Pt was assisted in sitting up in bed to eat her breakfast. No SOB/resp distress or severe pain/discomfort noted at this time. IV in left forearm intact and patent. Pt next to nurses' station for close observation for needs and care. Call light within reach.
[2019-12-12] MEDS: QUEtiapine FUMARATE 25 MG TABLET PO SCH ×3 (08:19→20:10)
[2019-12-12] MEDS: NYSTATIN 15 GM TOPICAL POWDER TP SCH ×2 (08:21→20:10)
--- NOTE | 2019-12-12 10:30 | NUR ---
Note Pt was seen and assessed at bedside by Dr Hernandez at 0930am. Pt was given hygiene and partial bed bath by NETWORKING TECHNICIAN at this time. Pt now on the phone with her sister talking. No needs noted at this time. Call light within reach.
--- NOTE | 2019-12-12 11:50 | NUR ---
Note Dr Hough on the floor and assessment and orders were done.
--- NOTE | 2019-12-12 12:05 | NUR ---
Note Dr Hernandez called in [place] office for renewal order (FOR HOLD) for transfer to [facility] at 1150am, waiting for call back.
[2019-12-12 12:45] VITALS: BP_SYST 149
--- NOTE | 2019-12-12 14:10 | NUR ---
Note Dr Hernandez's office in [place] was called again at 1342 for renewal of HOLD order. Left message.
[2019-12-12 17:06] VITALS: BP_SYST 144
[2019-12-12] MEDS: cefTRIAXone 1 GM IVPB PREMIX 50 ML IV SCH (17:20)
--- NOTE | 2019-12-12 18:45 | NUR ---
Note Pt checked on q1' and PRN all shift for needs and care. No SOB/resp distress or pain/discomfort at this time. Pt was assisted to restroom frequently - pt had few episodes of incontinence of bowel and urine in bed this shift, partial bed bath and hygiene care with complete bed linen changes were done. Pt next to nurses' station for close observation for needs and care. Pt resting in bed at this time. No needs noted. Pt was maintained with safety precautions all shift. Call light within reach.
[2019-12-12 19:30] VITALS: BP_SYST 155
--- NOTE | 2019-12-12 19:30 | NUR ---
INITIAL NOTES PATIENT IS LAYING IN BED AND STABLE. NO S/S OF RESPIRATORY DISTRESS NOTED. PATIENT SUCCESSFULLY DEMONSTRATE USAGE OF CALL LIGHT AT THIS TIME. PLAN OF CARE IS DISCUSSED WITH PATIENT. FALL, SAFETY, ASPIRATION, AND RESPIRATORY PRECAUTIONS WILL BE IN PLACE THROUGHOUT THE SHIFT. BED IS LOCKED, ALARMED, AND AT THE LOWEST POSITION.
--- NOTE | 2019-12-12 23:06 | NUR ---
ROUNDING PATIENT WENT TO THE RESTROOM AT THIS TIME. NO S/S OF RESPIRATORY DISTRESS NOTED. CALL LIGHT IN REACH. BED IS LOCKED, ALARMED, AND AT THE LOWEST POSITION.
[2019-12-12 23:52] VITALS: BP_SYST 126
[2019-12-13] MEDS: metroNIDAZOLE 500 mg/NS 100 ML IV SCH ×3 (02:04→18:27)
[2019-12-13] MEDS: D5NS 1,000 ML IV SCH ×2 (02:04→17:29)
--- NOTE | 2019-12-13 04:00 | NUR ---
ROUNDING PATIENT IS SLEEPING IN BED AND STABLE. NO S/S OF RESPIRATORY DISTRESS. CALL LIGHT IN REACH. BED IS LOCKED, ALARMED, AND AT THE LOWEST POSITION.
[2019-12-13] MEDS: MORPHINE 2 MG/ML INJ. SYRINGE IVP PRN ×2 (05:45→20:42)
--- NOTE | 2019-12-13 06:00 | NUR ---
DR. PICKENS BY BEDSIDE.
--- NOTE | 2019-12-13 06:31 | NUR ---
CLOSING NOTES PATIENT IS STABLE AND IN BED. NO S/S OF RESPIRATORY DISTRESS NOTED. CALL LIGHT IN REACH. BED IS LOCKED, ALARMED, AND AT THE LOWEST POSITION. FALL, SAFETY, ASPIRATION, AND RESPIRATORY PRECAUTIONS HAS BEEN IN PLACE THROUGHOUT THE SHIFT. WILL CONTINUE TO MONITOR UNTIL REPORT IS ENDORSED TO AM NURSE BY BEDSIDE.
[2019-12-13 08:10] VITALS: BP_SYST 142
[2019-12-13] MEDS: NYSTATIN 15 GM TOPICAL POWDER TP SCH ×2 (08:51→20:41)
[2019-12-13] MEDS: QUEtiapine FUMARATE 25 MG TABLET PO SCH ×3 (08:51→20:40)
--- NOTE | 2019-12-13 08:55 | NUR ---
Routine Scheduled medications given per order. Patient resting comfortably in bed with no distress noted. Patient stable at this time.
[2019-12-13 09:53] LABS: BASOPHILS % (AUTO) 0.7 % (0.0-2.0); EOSINOPHILS # (AUTO) 0.3 K/uL (0.0-0.4); EOSINOPHILS % (AUTO) 4.6 % (0.0-4.0); HEMATOCRIT 29.4 % (36-48); HEMOGLOBIN 9.7 g/dL (12.0-16.0); LYMPHOCYTES % (AUTO) 14.4 % (20.5-51.5); MEAN CORPUSCULAR HEMOGLOBIN 31 pg (27-31); MEAN CORPUSCULAR HGB CONC 33 % (32-36); MEAN CORPUSCULAR VOLUME 95 fL (79.0-98.0); MONOCYTES # (AUTO) 0.7 K/uL (0.0-1.0); MONOCYTES % (AUTO) 10.2 % (1.7-9.3); NEUTROPHILS # (AUTO) 4.8 K/uL (1.8-7.7); NEUTROPHILS % (AUTO) 70.1 % (40.0-70.0); PLATELET COUNT (AUTO) 360 K/uL (130-430); RED CELL DISTRIBUTION WIDTH 15.1 % (9.0-15.0); WHITE BLOOD COUNT (AUTO) 6.8 K/uL (4.8-10.8)
[2019-12-13 10:05] LABS: CALCIUM 7.4 mg/dL (8.4-11.0); CREATININE 1.05 mg/dL (0.55-1.30); POTASSIUM 3.5 mmol/L (3.5-5.1)
[2019-12-13 10:10] LABS: ALBUMIN 2.2 g/dL (3.4-4.8); TOTAL BILIRUBIN 0.2 mg/dL (0.0-1.0)
--- NOTE | 2019-12-13 10:46 | NUR ---
Social Service Note: SALES AND MARKETING REPRESENTATIVE reviewed pt's chart; pt is on a 5150. Pt is positive for CDIFF. Pt is unable to go to [facility] with a isolation.
[2019-12-13 12:00] VITALS: BP_SYST 144
--- NOTE | 2019-12-13 12:15 | NUR ---
Routine Checked blood sugar: 90 mg/dl - no coverage required. Scheduled IV abx given per order. Patient sitting on side of bed with Galilea at bedside to assist with lunch. Patient stable at this time.
[2019-12-13] MEDS ORDERED: VANCOMYCIN HCL Non-Formulary 125 MG CAPSULE PO SCH (13:00)
[2019-12-13] MEDS: VANCOMYCIN HCL ORAL SOLUTION 250 MG/5 ML, 80 ML PO SCH ×3 (14:27→20:51)
--- NOTE | 2019-12-13 14:29 | NUR ---
Routine Scheduled medications given per order. Patient stable at this time.
--- NOTE | 2019-12-13 14:46 | NUR ---
Nutrition F/U RD reviewed pt's current EMR record including diet Hx, physician notes, nursing notes, pertinent labs/meds/procedures, care trends, and care activity. Admission Dx: Diverticulitis, Pneumonia Dx: abdominal pain, DM, HTN, bipolar disorder, schizophrenia, diverticulitis, severe malnutrition, acute psychosis, legally blind 2/2 glaucoma per physician notes PMH: DM, HTN, Bipolar, Schizophrenia per physician notes Current Diet Order/Nutrition Support: Soft (low fiber/bland) x1 day Subjective Info: RD called pt's primary RN who reported that pt has been eating well today, w/ no pending plans/procedures. RN stated that pt had 14 loose stools yesterday -- noted positive C. diff results per EMR. Pt may benefit from soluble fibers from banana flakes to help bulk up stool. Pt's appetite seems to be improving per PO intake records per EMR review. Pertinent Labs K 3.5 WNL (improved), BG 108 H, BUN 5 L Skin Integrity Comment: Ramesh scale: 16; per nursing notes, anterior abdomen folds w/ pink discoloration Current % PO 67% average x5 meals -- fair Estimated Energy Expenditure (kcals/day) 5068-6749 kcal/day (25-30 kcal/kg ABW for maintenance) Estimated Protein Required (g/day) 53gm/day (1gm/kg ABW for maintenance) Estimated Fluid Required (l/day) 1.3L/day (25ml/kg ABW for maintenance) Problem/Etiology/Signs/Symptoms Inadequate energy intake r/t poor appetite/therapeutic diet AEB intake meets <50% of estimated needs. *improving Altered nutrition-related labs r/t endocrine dysfunction AEB elevated BG and Hx of DM. *BG/POC BG seemingly better-controlled Expected Outcomes/Goals Monitor advancement of diet, appetite and PO intake w/ goal of pt meeting at least 75% of estimated nutritional needs, labs trending WNL, normal GI function, skin integrity/wt maintenance. Dietitian Recommendations * Recommend CCHO, soft (low fiber/bland) diet w/ Banantrol BID Follow Up Moderate Risk: F/U in 3-5 days Addendum: 12/13/19 at [address] CORRECTION: Pertinent Labs K 3.5 WNL (improved), BG 108 H, BUN 5 L, HgA1c 5.3 WNL
--- NOTE | 2019-12-13 14:53 | NUR ---
Dietitian Recommendations * Recommend CCHO, soft (low fiber/bland) diet w/ Banantrol BID LP, RD Please refer to Nutrition F/U for details.
[2019-12-13 16:46] VITALS: BP_SYST 146
[2019-12-13] MEDS: cefTRIAXone 1 GM IVPB PREMIX 50 ML IV SCH (17:28)
--- NOTE | 2019-12-13 17:33 | NUR ---
Routine Checked blood sugar: 100 mg/dl - no coverage required. Scheduled po and IV abx given per order. Patient sitting on side of bed, ready to eat dinner. Patient stable at this time.
--- NOTE | 2019-12-13 18:28 | NUR ---
Routine Scheduled IV abx given per order. Patient stable throughout shift.
--- NOTE | 2019-12-13 19:37 | NUR ---
INITIAL NOTES PATIENT IS STABLE AND LAYING IN BED. NO S/S OF RESPIRATORY DISTRESS NOTED. PATIENT SUCCESSFULLY DEMONSTRATES USAGE OF CALL LIGHT AT THIS TIME. BED IS LOCKED, ALARMED, AND AT THE LOWEST POSITION. FALL,SAFETY, ASPIRATION, RESPIRATORY, AND CONTACT PRECAUTION WILL BE IN PLACE THROUGHOUT THE SHIFT. PLAN OF CARE IS DISCUSSED WITH PATIENT.
[2019-12-13 19:40] VITALS: BP_SYST 126
[2019-12-14 00:21] VITALS: BP_SYST 159
[2019-12-14] MEDS: D5NS 1,000 ML IV SCH ×2 (00:48→22:53)
[2019-12-14] MEDS: MORPHINE 2 MG/ML INJ. SYRINGE IVP PRN ×3 (01:32→22:41)
[2019-12-14] MEDS: metroNIDAZOLE 500 mg/NS 100 ML IV SCH ×3 (03:22→18:18)
[2019-12-14 06:12] LABS: ALBUMIN 2.3 g/dL (3.4-4.8); CALCIUM 7.4 mg/dL (8.4-11.0); CREATININE 1.02 mg/dL (0.55-1.30); POTASSIUM 3.7 mmol/L (3.5-5.1); TOTAL BILIRUBIN 0.2 mg/dL (0.0-1.0)
[2019-12-14 06:24] LABS: BASOPHILS % (AUTO) 0.5 % (0.0-2.0); EOSINOPHILS # (AUTO) 0.3 K/uL (0.0-0.4); EOSINOPHILS % (AUTO) 3.9 % (0.0-4.0); HEMATOCRIT 29.7 % (36-48); HEMOGLOBIN 9.8 g/dL (12.0-16.0); LYMPHOCYTES # (AUTO) 1.2 K/uL (1.0-5.5); LYMPHOCYTES % (AUTO) 16.6 % (20.5-51.5); MEAN CORPUSCULAR HEMOGLOBIN 32 pg (27-31); MEAN CORPUSCULAR HGB CONC 33 % (32-36); MEAN CORPUSCULAR VOLUME 97 fL (79.0-98.0); MONOCYTES # (AUTO) 0.7 K/uL (0.0-1.0); MONOCYTES % (AUTO) 9.6 % (1.7-9.3); NEUTROPHILS # (AUTO) 4.9 K/uL (1.8-7.7); NEUTROPHILS % (AUTO) 69.4 % (40.0-70.0); PLATELET COUNT (AUTO) 375 K/uL (130-430); RED BLOOD CELL COUNT(AUTO) 3.07 MIL/uL (4.2-6.2); RED CELL DISTRIBUTION WIDTH 15.3 % (9.0-15.0); WHITE BLOOD COUNT (AUTO) 7.1 K/uL (4.8-10.8)
--- NOTE | 2019-12-14 07:10 | NUR ---
CLOSING NOTES PATIENT IS STABLE AND LAYING IN BED. NO S/S OF RESPIRATORY DISTRESS NOTED. BED IS LOCKED, ALARMED, AND AT THE LOWEST POSITION. FALL,SAFETY, ASPIRATION, RESPIRATORY, AND CONTACT PRECAUTION HAS BEEN IN PLACE THROUGHOUT THE SHIFT. Addendum: 12/14/19 at 0814 by Ovidio Guerrero RN REPORT IS ENDORSED TO AM NURSE BY BEDSIDE.
--- NOTE | 2019-12-14 07:30 | NUR ---
INITIAL ROUNDS Received pt AAOx4, pt screaming at staff even as staff was helping her to the bedside commode. No s/s resp distress, no c/o pain. Pt on Contact isolation for C-Diff+. IVF infusing well to LFA at ordered rate with no s/s infiltration to site. Plan of care for the day reviewed with pt-pt just stated she "hates it here". Pain management, skin and safety discussed-pt just stated "go away". Bed alarm on, side rails up x3, room across from nursing station for safety. Call light within reach.
[2019-12-14 08:40] VITALS: BP_SYST 125
[2019-12-14] MEDS: QUEtiapine FUMARATE 25 MG TABLET PO SCH ×3 (09:53→22:15)
[2019-12-14] MEDS: VANCOMYCIN HCL ORAL SOLUTION 250 MG/5 ML, 80 ML PO SCH ×4 (09:53→22:15)
[2019-12-14] MEDS: NYSTATIN 15 GM TOPICAL POWDER TP SCH ×2 (10:00→22:49)
--- NOTE | 2019-12-14 10:00 | NUR ---
ROUNDS/VOIDED/MD Pt assisted to the bedside commode, pt voided and assisted to sink to wash her hands. Pt very hostile, arguing with everyone who tries to help her. Pt seen by Dr. Hough-he stated he will place order for LTAC today. Informed him that Dr. Hernandez placed pt on [address] Hough informed that pt's IV leaking and that the pt is refusing a new IV at this time-asked if he could order p.o. Flagyl-no comment from MD. All precautions remain in place. Call light within reach.
[2019-12-14 12:40] VITALS: BP_SYST 164
[2019-12-14 17:03] VITALS: BP_SYST 162
[2019-12-14] MEDS: cefTRIAXone 1 GM IVPB PREMIX 50 ML IV SCH (17:17)
--- NOTE | 2019-12-14 17:20 | NUR ---
IV Pt finally consented to letting me place an IV. Iv placed to RFA, 22g placed, IVPB now infusing well at ordered rate. All precautions remain in place. Call light within reach.
--- NOTE | 2019-12-14 19:00 | NUR ---
CLOSING NOTE Pt resting quietly in bed with no s/s resp distress, no further c/o pain or discomfort. IVF infusing well to RFA at ordered rate with no s/s infiltration to site. Isolation precautions maintained throughout shift. Skin and safety precautions remain in place, call light within reach.
[2019-12-14 21:45] VITALS: BP_SYST 151
[2019-12-15 00:49] VITALS: BP_SYST 150
[2019-12-15] MEDS: metroNIDAZOLE 500 mg/NS 100 ML IV SCH (03:02)
[2019-12-15 04:12] VITALS: BP_SYST 128
--- NOTE | 2019-12-15 07:25 | NUR ---
received report patient aaox 4. lungs bilaterally clear. abdomen soft and non distended. has iv access on the rt wrist #22. with iv fluids of D5 1/2ns at 75cc/hr infusing on well. no sob nor complained made noted. vitals signs stable. afebrile. bed low position, alarmed and locked. call lights within reach. instructed to call for assistance. has bedside commode.
[2019-12-15 08:30] VITALS: BP_SYST 130
--- NOTE | 2019-12-15 09:00 | NUR ---
assisted to the bathroom. voided x 1.
[2019-12-15] MEDS: VANCOMYCIN HCL ORAL SOLUTION 250 MG/5 ML, 80 ML PO SCH ×4 (09:38→22:22)
[2019-12-15] MEDS: QUEtiapine FUMARATE 25 MG TABLET PO SCH ×3 (09:38→22:21)
[2019-12-15] MEDS: NYSTATIN 15 GM TOPICAL POWDER TP SCH ×2 (09:38→21:00)
--- NOTE | 2019-12-15 10:00 | NUR ---
due meds given.
[2019-12-15 12:00] VITALS: BP_SYST 143
--- NOTE | 2019-12-15 12:00 | NUR ---
needs to be fed at this time. patient legally blind. both eyes.
--- NOTE | 2019-12-15 13:00 | NUR ---
always screams. why i am bothered for everything. refused to have accucheck check. but agreed later on. latest bs 92 mg/dl. able to eat lunch in 80 to 90%.
[2019-12-15] MEDS ORDERED: LACTOBACILLUS RHAMNOSUS GG 1 CAP CAPSULE PO ONE (13:15)
[2019-12-15] MEDS ORDERED: CHOLECALCIFEROL (VITAMIN D3) 2,000 UNIT TABLET PO ONE (13:30)
[2019-12-15] MEDS ORDERED: MULTIVITAMINS TAB 1 TABLET PO ONE (13:45)
--- NOTE | 2019-12-15 15:00 | NUR ---
refused to take photo on rt labia/near rt groin area. slight cut on it. slight bleeding noted. applied z guard on it. no bleeding noted.
--- NOTE | 2019-12-15 15:06 | NUR ---
patient lying in bed stable. no complained of pain nor sob noted.
--- NOTE | 2019-12-15 15:54 | NUR ---
assisted to the bathroom voided and had soft brown stool no diarrhea noted. due meds given.
--- NOTE | 2019-12-15 16:23 | NUR ---
down graded to med surgical no more on telemetry.
--- NOTE | 2019-12-15 18:04 | NUR ---
latest bs 90 mg/dl. no coverage given. made comfortable. assist feeding open food for her. no complained made so far. had voided on the bedside commode. no complained made so far
[2019-12-15 18:07] VITALS: BP_SYST 167
--- NOTE | 2019-12-15 19:18 | NUR ---
endorsed to incoming nurse Danitza PEDROZA
[2019-12-15] MEDS: LACTOBACILLUS RHAMNOSUS GG 1 CAP CAPSULE PO SCH (21:00)
[2019-12-15] MEDS: MULTIVITAMINS TAB 1 TABLET PO SCH (22:19)
[2019-12-16] VITALS (8 sets, daily range): BP systolic 142–163
[2019-12-16] MEDS: ACETAMINOPHEN 325 MG TABLET PO PRN ×2 (02:56→07:45)
--- NOTE | 2019-12-16 07:30 | NUR ---
OPENING NOTES: RECEIVED PATIENT FROM TRAILER ASSEMBLER NURSE. PATIENT IS ASLEEP LAYING DOWN IN BED. PATIENT IS TOLERATING OXYGEN ON ROOM AIR WITH NO SIGNS OF DISTRESS OR SHORTNESS OF BREATH NOTED. PATIENT DOES NOT HAVE AN IV SITE. MD IS AWARE. PATIENT IN STABLE CONDITION. SAFETY, FALL, ASPIRATION AND CONTACT PRECAUTIONS ARE IN PLACE. BED LOCKED IN LOWEST POSITION WITH CALL LIGHT IN REACH. WILL CONTINUE TO MONITOR PATIENT FOR ANY CHANGES.
--- NOTE | 2019-12-16 10:10 | NUR ---
RN ROUNDS: PATIENT IS AWAKE AND ALERT x4 LAYING DOWN IN BED. PATIENT DENIES ANY PAIN AT THE MOMENT. PATIENT WAS ASSISTED TO THE RESTROOM WITH NO COMPLICATIONS. PATIENT VOIDED AND WAS RETURNED BACK TO BED. PATIENT DOES NOT HAVE AN IV SITE. PATIENT IN STABLE CONDITION. WILL CONTINUE TO MONITOR PATIENT FOR ANY CHANGES.
[2019-12-16] MEDS: QUEtiapine FUMARATE 25 MG TABLET PO SCH ×3 (10:20→20:51)
[2019-12-16] MEDS: LACTOBACILLUS RHAMNOSUS GG 1 CAP CAPSULE PO SCH ×2 (10:20→20:51)
[2019-12-16] MEDS: MULTIVITAMINS TAB 1 TABLET PO SCH ×2 (10:20→20:51)
[2019-12-16] MEDS: CHOLECALCIFEROL (VITAMIN D3) 2,000 UNIT TABLET PO SCH (10:20)
[2019-12-16] MEDS: VANCOMYCIN HCL ORAL SOLUTION 250 MG/5 ML, 80 ML PO SCH ×4 (10:20→20:52)
[2019-12-16] MEDS: NYSTATIN 15 GM TOPICAL POWDER TP SCH ×2 (10:21→20:52)
--- NOTE | 2019-12-16 12:19 | NUR ---
RN ROUNDS: PATIENT IS AWAKE AND ALERT x4 LAYING DOWN IN BED. PATIENT DENIES ANY PAIN AT THE MOMENT. PATIENT IS TOLERATING OXYGEN ON ROOM AIR WITH NO SIGNS OF DISTRESS OR SHORTNESS OF BREATH NOTED. PATIENT IN STABLE CONDITION. WILL CONTINUE TO MONITOR PATIENT FOR ANY CHANGES.
--- NOTE | 2019-12-16 14:30 | NUR ---
RN ROUNDS: PATIENT IS ASLEEP LAYING DOWN IN BED. NO SIGNS OF DISTRESS OR SHORTNESS OF BREATH NOTED. PATIENT IN STABLE CONDITION. WILL CONTINUE TO MONITOR PATIENT FOR ANY CHANGES.
[2019-12-16] MEDS ORDERED: MULTIVITS,CA,MINERALS/IRON/FA 1 TABLET PO ONE (15:45)
--- NOTE | 2019-12-16 16:20 | NUR ---
RN ROUNDS: PATIENT IS ASLEEP LAYING DOWN IN BED. NO SIGNS OF DISTRESS OR SHORTNESS OF BREATH NOTED. PATIENT IN STABLE CONDITION. WILL CONTINUE TO MONITOR PATIENT.
--- NOTE | 2019-12-16 18:52 | NUR ---
CLOSING NOTES: PATIENT IS AWAKE AND ALERT x4 LAYING DOWN IN BED. PATIENT IS TOLERATING OXYGEN ON ROOM AIR WITH NO SIGNS OF DISTRESS OR SHORTNESS OF BREATH NOTED. PATIENT DOES NOT HAVE AN IV SITE. MD IS AWARE. PATIENT IN STABLE CONDITION. SAFETY, FALL, ASPIRATION AND CONTACT PRECAUTIONS REMAINED IN PLACE THROUGHOUT THE SHIFT. BED LOCKED IN LOWEST POSITION WITH CALL LIGHT IN REACH. WILL ENDORSE PATIENT CARE TO ONCOMING MARKET GARDENER NURSE. Addendum: 12/16/19 at 1857 by Dayanna Townsend RN SAFETY, FALL AND ASPIRATION PRECAUTIONS REMAINED IN PLACE THROUGHOUT THE SHIFT. CONTACT PRECAUTIONS WERE DISCONTINUED PER DR. CONRAD.
--- NOTE | 2019-12-16 19:15 | NUR ---
change of shift.pt.presents quiescent affect;calm,resting.pt.presents vision compromise;blind bilateral.pt.presents affect;aggressive. genera status stable.respiratory status stable;unlabored@room air.call light/telephone w/in reach of the pt.
--- NOTE | 2019-12-16 20:00 | NUR ---
pt.assessed.v/s assessed;values w/in normal limits.pt.had stated she presents pain.i had apprised the pt.that morphine is ordered via ivp;peripheral line.pt.presents no iv access pt.stated nsg has attempted many times and requests no iv access.md.apprised. i apprised the pt.that i will page the md.i have apprised the pt.that snacks/beverages are available w/in th shift.pt had requested crackers/saltine/william,apple juice.i have provided the snacks/juice.i have placed a nsg-alert sign@the hob;re;blind status. i have assisted the pt.to the restroom .i have assisted the pt's return to bed.call light/telephone placed w/in reach of the pt.
--- NOTE | 2019-12-16 20:51 | NUR ---
Adri Hough s/w Areli.
[2019-12-16] MEDS ORDERED: HYDROcodone/ACETAMIN 5-325 MG TAB (NORCO/ VICODIN) PO PRN (21:00)
[2019-12-16] MEDS ORDERED: TEMAZEPAM 15 MG CAPSULE PO PRN (21:00)
--- NOTE | 2019-12-16 21:00 | NUR ---
i have assessed the blood glucose:value;110mg/dl.i had apprised the pt.that the blood glucose is due for assessment @midnight. the pt.stated if i am asleep do not assess the blood glucose nor the v/s@midnight.i have administered the 2100p medications.pt.capable to ingest the medications whole w/out difficulty.pt.had requested crackers/apple juice. i have provided the crackers/juice.i have provided a blanket;warmed.
--- NOTE | 2019-12-16 21:30 | NUR ---
has returned the page.i apprised of the pt's status;pain/sleep.medication. ordered:norco:5/325mg po q-6hrs;pain,restoril:15mg po;qhs/p;sleep.i have administered the medications.to re-assess the pain medication efficacy per pain mgx protocol.i have assisted the pt.to the restroom.i have assisted the pt's return to bed.pt.requested an additional blanket; i have provide th blanket;warmed.
--- NOTE | 2019-12-16 22:00 | NUR ---
pt.assessed.presents quiescent affect;calm.resting general status stable.respiratory status stable;unlabored. pt.capable to reposition self.call light/telephone w/in reach of the pt.
--- NOTE | 2019-12-17 | NUR ---
pt.assessed.pt.had apprised nsg if asleep do not disturb;awaken to assess the v/s.v/s not assess@this hour per the pt's earlier requests. general status stable.respiratory status stable;unlabored.pt.capable to reposition self.call light/telephone w/in reach of the pt.
--- NOTE | 2019-12-17 02:00 | NUR ---
pt.assessed.pt.presents quiescent affect;calm,somnolent.general status stable.respiratory status stable;unlabored. pt.capable to reposition self.call light/telephone w/in reach of the pt.
--- NOTE | 2019-12-17 04:00 | NUR ---
pt.assessed.pt.presents quiescent affect;calm,somnolent.general status stable.respiratory status stable;unlabored. pt.capable to reposition self.call light/telephone w/in reach of the pt.
--- NOTE | 2019-12-17 04:50 | NUR ---
i have assisted the pt.to the restroom.i have assisted the pt's return to bed.pt.repositioned.blood glucose assessment due@0600a. pt.has acquiest and allowed to assess the blood glucose@this hour.value;108mg/dl.no requests posited @this hour.
--- NOTE | 2019-12-17 06:31 | NUR ---
pt.assessed.pt.presents quiescent affect;calm,somnolent.'s present assessed the pt.posited inquires re;pt.general status: coveyed pt's data to 's. pt.,capable to reposition self.general status stable.respiratory status stable;unlabored.call light/telephone w/in reach of the pt.
--- NOTE | 2019-12-17 07:15 | NUR ---
OPENING NOTE RECEIVED BEDSIDE SBAR FROM NIGHT RN, PATIENT IN BED, EYES CLOSED,RESPIRATIONS EVEN, NON LABORED, BED IN LOW AND LOCKED POSITION, CALL LIGHT WITHIN REACH, BED ALARM ON
[2019-12-17 08:00] VITALS: BP_SYST 132
--- NOTE | 2019-12-17 09:00 | NUR ---
nurse note patient in bed, eyes closed, respirations even, non labored, bed in low and locked position, call light within reach, bed alarm on
[2019-12-17] MEDS: QUEtiapine FUMARATE 25 MG TABLET PO SCH ×2 (10:39→15:55)
[2019-12-17] MEDS: MULTIVITAMINS TAB 1 TABLET PO SCH ×2 (10:39→20:40)
[2019-12-17] MEDS: LACTOBACILLUS RHAMNOSUS GG 1 CAP CAPSULE PO SCH ×2 (10:40→20:40)
[2019-12-17] MEDS: VANCOMYCIN HCL ORAL SOLUTION 250 MG/5 ML, 80 ML PO SCH ×4 (10:40→20:41)
[2019-12-17] MEDS: CHOLECALCIFEROL (VITAMIN D3) 2,000 UNIT TABLET PO SCH (10:40)
--- NOTE | 2019-12-17 10:44 | NUR ---
Discharge Planning: DCP faxed pt referral to [facility] (f [phone] p [phone]) DCP to follow up
[2019-12-17] MEDS: NYSTATIN 15 GM TOPICAL POWDER TP SCH ×2 (11:01→20:41)
[2019-12-17] MEDS: MULTIVITS,CA,MINERALS/IRON/FA 1 TABLET PO SCH (11:05)
[2019-12-17 12:00] VITALS: BP_SYST 156
--- NOTE | 2019-12-17 14:30 | NUR ---
Tele Monitor educated patient on purpose and procedure for cardiac monitoring with gambling monitor, patient verbalized understanding, tele monitor in place, patient requesting crackers and juice, provided patient with snack, patient sitting up in bed eating snack.
--- NOTE | 2019-12-17 15:06 | NUR ---
DC Planning: Notified dr Hough: Per [facility], the pt does not meet LTAC criteria: Tele status on 12/12 and dc on 12/14 ( needs 3 midnights). CM to f/u. Addendum: 12/17/19 at 1556 by Branden Estrada RN Received call back from dr. Hough, given order to dc pt back to [facility] made aware.
--- NOTE | 2019-12-17 16:00 | NUR ---
Tele patient removed and refuses to wear Tele monitor, Dr. France bosch
--- NOTE | 2019-12-17 16:08 | NUR ---
Social Service Note: SENIOR ENGINEERING TECHNICIAN faxed referral to [facility] ([phone] p.[phone]); Pt does not have a current 5150. SENIOR ENGINEERING TECHNICIAN will follow up with [facility] to see if they can accept the pt.
--- NOTE | 2019-12-17 16:45 | NUR ---
ambulate assisted patient to the bathroom, patient voided, washed hands and returned to bed, no signs of distress, bed in low and locked position, call light within reach, bed alarm on
[2019-12-17 17:12] VITALS: BP_SYST 153
--- NOTE | 2019-12-17 17:49 | NUR ---
nurse note assisted patient to the bathroom, patient voided, washed hands, performed oral care, changed gown, returned to bed, no distress noted, bed in low and locked position bed alarm on
--- NOTE | 2019-12-17 17:57 | NUR ---
Discharge Planning spoke with Nanette from [facility] , per Nanette she will call back to the nurses station when bed is available for transfer. Addendum: 12/17/19 at 1822 by Kimberly Elizondo RN Spoke with Nanette, patient has been accepted to bed 52B
--- NOTE | 2019-12-17 18:40 | NUR ---
Refusing Transfer danial Fitzpatrick patient will have to voluntarily transfer to [facility] due to being , informed patient of orders to transfer and that bed is available at [facility], patient refusing transfer, patient states "I do not want to go there", informed broker in charge.
--- NOTE | 2019-12-17 19:10 | NUR ---
closing note closing note bedside SBAR given to night RN, patient awake, watching tv, respirations even, non labored, bed in low and locked position, call light within reach, bed alarm on.
--- NOTE | 2019-12-17 19:45 | NUR ---
A/A/O X3. PATIENT IN BLIND ON BOTH EYES.DENIES ANY DISCOMFORT @ THIS TIME.DENIES SOB.
[2019-12-17 20:00] VITALS: BP_SYST 152
--- NOTE | 2019-12-17 20:00 | NUR ---
AFEBRILE. BP 152/65. ASSISTED OOB TO THE BR & BACK TO BED.
[2019-12-17] MEDS ORDERED: QUEtiapine FUMARATE 100 MG TABLET PO SCH (21:00)
--- NOTE | 2019-12-17 21:00 | NUR ---
DUE MEDS ADM & WELL TOLERATED.
--- NOTE | 2019-12-17 22:00 | NUR ---
RESTING COMFORTABLY IN NO ACUTE DISTRESS.
--- NOTE | 2019-12-18 | NUR ---
FINGER STICK BLD SUGAR 101.SNACKS GIVEN.
[2019-12-18 01:21] VITALS: BP_SYST 150
--- NOTE | 2019-12-18 02:00 | NUR ---
RESTING COMFORTABLY IN NO ACUTE DISTRESS.
--- NOTE | 2019-12-18 04:30 | NUR ---
ASSISTED OOB TO THE BR & ASSISTED BACK TO BED.
--- NOTE | 2019-12-18 06:37 | NUR ---
ENDORSED RESTING COMFORTABLY IN NO ACUTE DISTRESS.SAFETY MAINTAINED.
[2019-12-18 07:50] VITALS: BP_SYST 173
--- NOTE | 2019-12-18 08:00 | NUR ---
Note Pt sitting on side of bed eating her breakfast at this time. Pt denies any SOB/resp distress or pain/discomfort at this time. Pt has no IV - MD aware. Pt denies any needs at this time. Pt next to nurses' station for close observation for needs and care. Call light within reach.
[2019-12-18] MEDS: ACETAMINOPHEN 325 MG TABLET PO PRN (08:06)
[2019-12-18] MEDS: MULTIVITS,CA,MINERALS/IRON/FA 1 TABLET PO SCH (08:19)
[2019-12-18] MEDS: MULTIVITAMINS TAB 1 TABLET PO SCH (08:20)
[2019-12-18] MEDS: CHOLECALCIFEROL (VITAMIN D3) 2,000 UNIT TABLET PO SCH (08:20)
[2019-12-18] MEDS: QUEtiapine FUMARATE 25 MG TABLET PO SCH ×2 (08:20→14:19)
[2019-12-18] MEDS: VANCOMYCIN HCL ORAL SOLUTION 250 MG/5 ML, 80 ML PO SCH ×3 (08:20→17:42)
[2019-12-18] MEDS: LACTOBACILLUS RHAMNOSUS GG 1 CAP CAPSULE PO SCH (08:20)
[2019-12-18] MEDS: NYSTATIN 15 GM TOPICAL POWDER TP SCH (08:25)
--- NOTE | 2019-12-18 11:00 | NUR ---
Note Pt resting in bed - no needs noted at this time. Pt has been assisted to restroom to void with steady gait. No needs noted at this time. Call light within reach.
[2019-12-18 12:30] VITALS: BP_SYST 161
--- NOTE | 2019-12-18 12:49 | NUR ---
Discharge Planning: DCP faxed pt referral to [facility] (f [phone] p [phone]) and [facility] (f [phone] ) DCP will follow up. Addendum: 12/18/19 at 1358 by Delia Radfrod DP [facility] (f [phone] p [phone]) accepted Rm 111B [facility] (f [phone] ) accepted Rm 16B DCP made CM aware. Addendum: 12/18/19 at 1528 by Delia Radford DP DCP received room from [facility] (f [phone] p [phone]) accepted Rm 111B, transportation arrange with [facility] ([phone]) 6:30pm P/U patient packet taken to nurse station.
--- NOTE | 2019-12-18 12:50 | NUR ---
Note Pt was asked if she will go to SNF on discharge from the hospital. Pt agreed to go either to [facility] or [facility].
--- NOTE | 2019-12-18 12:51 | NUR ---
DC Planning: informed pt the dcp to snf: the pt agreed with the plan, snf of choice given per dr. Hough' s recommendation: [facility] and [facility]f. The pt requested first option is [facility], next i s [facility].
--- NOTE | 2019-12-18 12:55 | NUR ---
Note Dr Howard at 0755am, Dr Hernandez at 11am, Dr Hough were on the floor to do assessment on pt today.
--- NOTE | 2019-12-18 13:49 | NUR ---
Nutrition F/U RD reviewed pt's current EMR record including diet Hx, physician notes, nursing notes, pertinent labs/meds/procedures, care trends, and care activity. Admission Dx: Diverticulitis, Pneumonia Dx: abdominal pain, DM, HTN, bipolar disorder, schizophrenia, diverticulitis, severe malnutrition, acute psychosis, legally blind 2/2 glaucoma per physician notes PMH: DM, HTN, Bipolar, Schizophrenia per physician notes Current Diet Order/Nutrition Support: CCHO, Soft (low fiber/bland) diet w/ Banatrol BID x5 days Subjective Info: RD called pt's room -- pt reported that her appetite has been bad, does not care for dry chicken/turkey entrees, and prefers dark meats. RD offered afternoon snack d/t poor appetite -- pt agreeable to 1/2 turkey sandwich, iced tea w/ sweetener, and crackers. Pt denied any BM today, but attested to ongoing diarrhea -- yet, also stated that diarrhea subsided. Pt stated she will try Banatrol supplement today, though had not been taking it days prior. Pt was offered Glucerna ONS -- pt declined, stated she does not care for them. Appetite seems to have improved based on EMR PO intake records. Pt pending D/C to SNF or geropsych per EMR. Nutrition education is not indicated. Pertinent Labs 12/14/19: BG 100 H, BUN 6 L 12/08/19: HgA1c 5.3 WNL Skin Integrity Comment: Ramesh scale: 19; per nursing notes, anterior abdomen folds w/ erythema Current % PO 84% average x7 meals -- good Estimated Energy Expenditure (kcals/day) 3385-6826 kcal/day (25-30 kcal/kg ABW for maintenance) Estimated Protein Required (g/day) 53gm/day (1gm/kg ABW for maintenance) Estimated Fluid Required (l/day) 1.3L/day (25ml/kg ABW for maintenance) Problem/Etiology/Signs/Symptoms Inadequate energy intake r/t poor appetite/therapeutic diet AEB intake meets <50% of estimated needs. *improved Altered nutrition-related labs r/t endocrine dysfunction AEB elevated BG and Hx of DM. *BG/POC BG seemingly better-controlled Expected Outcomes/Goals Monitor advancement of diet, appetite and PO intake w/ goal of pt meeting at least 75% of estimated nutritional needs, labs trending WNL, normal GI function, skin integrity/wt maintenance. Dietitian Recommendations * Recommend continuing CCHO, soft (low fiber/bland) diet w/ Banatrol BID Follow Up Low Risk: F/U in 7 days
--- NOTE | 2019-12-18 13:55 | NUR ---
Dietitian Recommendations * Recommend continuing CCHO, soft (low fiber/bland) diet w/ Banatrol BID LP, RD Please refer to Nutrition F/U for details.
--- NOTE | 2019-12-18 14:29 | NUR ---
PHYSICAL THERAPY CO-SIGN The Physical Therapy Progress Notes documented by Bacon Stringer have been reviewed. Reviewed/Co-Signed by: Giancarlo Landers PT Documentation Done by: NATHANIEL OLSON PTA Addendum: 12/18/19 at 1429 by Giancarlo Landers PT Amended: Links added.
--- NOTE | 2019-12-18 15:12 | NUR ---
NOTE Called Lin - admission RN for pt at [facility].
--- NOTE | 2019-12-18 15:50 | NUR ---
Note Pt has a bed in [facility]. Branedn (case manger) spoke to Dr Mora, who will be in to discharge pt and write for SNF medications. Discharge packet at nurses' station at this time. Pt resting in bed. No needs noted at this time. Call light within reach. Bed alarm has been on all shift.
[2019-12-18 16:23] VITALS: BP_SYST 173
[2019-12-18 18:19] VITALS: BP_SYST 170
--- NOTE | 2019-12-18 19:00 | NUR ---
NOTE Pt resting in bed after eating her dinner sitting on side of bed. No SOB/resp distress or abdominal pain/discomfort noted all shift. Pt was checked on q1' and PRN all shift for needs and care. Pt stable. Pt dressed in orange gown and sheet for discharge to SNF. Call light within reach.
--- NOTE | 2019-12-18 19:07 | NUR ---
Note Ambulance at bedside to pickle pumper pt. Discharge packet and report given to EMT at this time.
== END 2019-12-18 19:25 | DRG 371 ==
LOC: SED 14:30 → SMU 16:30 → STU 12-13 10:37 → SMU 12-15 14:48
PROVIDERS: ADMIT Internal Medicine Hospice and Palliative Medicine; ATTEND Internal Medicine Hospice and Palliative Medicine
DX: A04.72 Enterocolitis due to Clostridium difficile, not specified as recurrent (principal); J18.9 Pneumonia, unspecified organism; E43 Unspecified severe protein-calorie malnutrition; K57.32 Diverticulitis of large intestine without perforation or abscess without bleeding; F23 Brief psychotic disorder; F25.9 Schizoaffective disorder, unspecified; F31.9 Bipolar disorder, unspecified; E11.9 Type 2 diabetes mellitus without complications; D64.9 Anemia, unspecified; I12.9 Hypertensive chronic kidney disease with stage 1 through stage 4 chronic kidney disease, or unspecified chronic kidney disease; N18.9 Chronic kidney disease, unspecified; F17.210 Nicotine dependence, cigarettes, uncomplicated; H54.8 Legal blindness, as defined in USA; M81.0 Age-related osteoporosis without current pathological fracture; E66.9 Obesity, unspecified; M47.9 Spondylosis, unspecified; Z87.440 Personal history of urinary (tract) infections; Z68.32 Body mass index [BMI] 32.0-32.9, adult
CPT/HCPCS: 36415; 71045; 80053; 80061; 80307; 81003; 82140-TC; 82150-TC; 82550-TC; 82962; 83036; 83605; 83690-TC; 83735-TC; 83880; 84132-TC; 84484; 85025; 85610-TC; 85730-TC; 87040-TC; 87045-TC; 87046; 87081; 87177; 87230-TC; 89055; 93005; 96365; 96375; 97110-GP; 97116-GP; 99285; G0378; G0480; G0482; J0696; J1815; J2270; J2405; J3370; J3475; J3480; J3490; J7042; J7050